=== PATIENT | female | born 1990 | race Caucasian/White ===

== ENCOUNTER 2016-07-24 00:20 | Emergency (ER) | payer MEDICAID ==
[~2016-07-24 00:20] MED LIST: COLACE100 MG PO; LABETALOL HCL200 MG PO; MOTRIN-DPS800 MG PO; MUCINEX600 MG PO; PERCOCET 5-3251 EACH PO; PRENATAL VIT1 TAB PO; [UNRECOGNIZED DRUG - REMARK]
--- NOTE | 2016-07-26 13:14 | ER ---
ADMIT: 07/24/2016 RM/LOC: ER [facility] MR#: [id number] [address] [facility] [address] [place] [id number] [address] [place] [address] Emergency Room Report SEX: F AGE: 26 : 1990 DATE: 07/24/2016 HISTORY OF PRESENT ILLNESS: The patient is a 26-year-old female with a past medical history of migraine headaches, came to the ER with chief complaint of posterior occipital headache which is very similar to the migraine headaches she always had in quality and quantity. The patient had pain for 1 day. The patient also complains of photophobia and states that the loud voice and noise exacerbates the pain. The patient denies any trauma or fever. The patient complains of nausea without vomiting. The patient also states she is 7 weeks . PHYSICAL EXAMINATION: HEENT/NECK: There is no tenderness. Pupils are 3 mm, reactive to light. Jolt test is negative. No meningismus. Neck is soft. CHEST: Clear. ABDOMEN: Soft. NEUROLOGICAL: Normal motor and sensory and cranial nerve exam. Normal TM joint exam. The patient had no nystagmus. EMERGENCY ROOM COURSE: The patient received Reglan and Benadryl IM. The patient was re-examined and the symptom has completely resolved. Urine was negative for infection. The patient was discharged to home with return precautions, follow up with the primary care and Clinic as needed. Balwinder Wolff MD/ nicole JOB #: [id number] CC: Balwinder Wolff MD, Attending Physician Timothy Villagomez MD, Family Physician
== END 2016-07-24 01:56 | disposition home or self-care (01) ==
LOC: ER 00:20
DX: O99.89 Other specified diseases and conditions complicating pregnancy, childbirth and the puerperium (principal); R51 Headache; Z3A.01 Less than 8 weeks gestation of pregnancy